=== PATIENT | female | born 1940 | race Caucasian/White ===

== ENCOUNTER 2021-07-03 11:24 | Observation (INO) ==
[2021-07-03] MEDS ORDERED: *HR* FentaNYL (PF) 100 MCG/2 ML VIAL IVP ONE ×6 (12:09→21:16)
[2021-07-03] MEDS ORDERED: Ondansetron 4 MG/2 ML VIAL IVP ONE (12:09)
[2021-07-03] MEDS ORDERED: Isovue-370 500 ML BOTTLE IVP ONE (12:10)
[2021-07-03 12:29] LABS: Basophils % 0.4 %; Eosinophils % 0.2 %; Hematocrit 43.6 % (35.3-44.9); Hemoglobin 14.7 g/dL (11.5-15.4); Immature Granulocytes % 0.4 % (0-4); Lymphocytes # 1.6 K/mcL (0.6-4.6); Mean Corpuscular HGB Conc 33.7 g/dL (31.6-35.5); Mean Corpuscular Hemoglobin 29.5 pg (28.0-33.3); Mean Corpuscular Volume 87.6 fL (83.0-100.0); Mean Platelet Volume 8.8 fL (9.4-12.4); Monocytes # 0.6 K/mcL (0.0-1.3); Monocytes % 5.6 %; Neutrophils # 7.8 K/mcL (1.6-8.9); Platelet Count 229 K/mcL (140-400); Red Blood Count 4.98 M/mcL (3.82-4.97); Red Cell Distribution Width 16.2 % (11.5-14.5); Segmented Neutrophils % 77.4 %; White Blood Count 10.1 K/mcL (4.3-11.1)
[2021-07-03 12:57] LABS: Alanine Aminotransferase 21 Units/L (7-52); Albumin 4.5 g/dL (3.5-5.7); Albumin/Globulin Ratio 1.3 (1.1-2.2); Alkaline Phosphatase 71 Units/L (34-104); Aspartate Amino Transferase 19 Units/L (13-39); BUN/Creatinine Ratio 32 (6-26); Bilirubin,Total 0.7 mg/dL (0.3-1.0); Blood Urea Nitrogen 28 mg/dL (8-23); Calcium 10.4 mg/dL (8.6-10.3); Carbon Dioxide 26 mEq/L (23-29); Chloride 100 mEq/L (98-107); Globulin 3.6 g/dL (2.4-3.5); Glucose 128 mg/dL (70-105); Lipase 15 Units/L (11-82); Osmolality,Calculated 287 (280-300); Potassium 4.1 mEq/L (3.5-5.1); Sodium 135 mEq/L (136-145); Total Protein 8.1 g/dL (6.4-8.9); eGFR For African Americans > 60 (> 60); eGFR For Non-African Americans > 60 (> 60)
[2021-07-03] MEDS ORDERED: *HR* Promethazine 25 MG/ML VIAL IM ONE ×2 (14:03→18:17)
[2021-07-03 15:13] LABS: Bilirubin,Urine Negative (Negative); Blood,Urine Negative (Negative); Clarity,Urine Clear (Clear); Color,Urine Light-Yellow (Yellow); Glucose,Urine (UA) Normal (Normal); Ketones,Urine 10 mg/dL (Negative); Leukocyte Esterase,Urine Negative (Negative); Nitrite,Urine Negative (Negative); PH,Urine 7.5 pH Units (5.0-8.0); Protein,Urine Trace mg/dL (Neg-Trace); Specific Gravity,Urine > 1.030 (1.010-1.025); Urobilinogen,Urine Normal (Normal)
[2021-07-03] MEDS ORDERED: Ondansetron 4 MG/2 ML VIAL IVP PRN (17:18)
[2021-07-04] MEDS ORDERED: Ketorolac 15 MG/ML VIAL IVP PRN (00:11)
[2021-07-04] MEDS ORDERED: Naloxone 0.4 MG/ML INJ IVP PRN (00:11)
[2021-07-04] MEDS: 0.9 % Sodium Chloride 1,000 ML IVC SCH ×3 (00:58→23:04)
[2021-07-04] MEDS ORDERED: Morphine Sulfate 2 MG/ML SYRINGE IVP PRN (01:45)
[2021-07-04] MEDS: Ondansetron 4 MG/2 ML VIAL IVP PRN (01:55)
[2021-07-04 04:21] LABS: Basophils % 0.3 %; Hematocrit 43.5 % (35.3-44.9); Hemoglobin 14.9 g/dL (11.5-15.4); Immature Granulocytes % 0.5 % (0-4); Lymphocytes % 8.9 %; Mean Corpuscular HGB Conc 34.3 g/dL (31.6-35.5); Mean Corpuscular Hemoglobin 30.2 pg (28.0-33.3); Mean Corpuscular Volume 88.2 fL (83.0-100.0); Mean Platelet Volume 9.7 fL (9.4-12.4); Monocytes # 0.4 K/mcL (0.0-1.3); Monocytes % 3.7 %; Neutrophils # 9.4 K/mcL (1.6-8.9); Platelet Count 231 K/mcL (140-400); Red Blood Count 4.93 M/mcL (3.82-4.97); Red Cell Distribution Width 16.2 % (11.5-14.5); Segmented Neutrophils % 86.6 %; White Blood Count 10.8 K/mcL (4.3-11.1)
[2021-07-04 04:26] LABS: INR 1.1; Prothrombin Time 12.6 Seconds (9.4-12.1)
[2021-07-04 04:37] LABS: BUN/Creatinine Ratio 32 (6-26); Blood Urea Nitrogen 28 mg/dL (8-23); Calcium 9.8 mg/dL (8.6-10.3); Carbon Dioxide 24 mEq/L (23-29); Chloride 103 mEq/L (98-107); Glucose 124 mg/dL (70-105); Magnesium 2.4 mg/dL (1.6-2.6); Osmolality,Calculated 287 (280-300); Potassium 4.5 mEq/L (3.5-5.1); Sodium 135 mEq/L (136-145); eGFR For African Americans > 60 (> 60); eGFR For Non-African Americans > 60 (> 60)
[2021-07-04] MEDS ORDERED: *HR* Dextrose 50 % in Water (Vial) 50 ML VIAL IVP PRN (07:59)
[2021-07-04] MEDS ORDERED: D5% in Water 1,000 ML IVC PRN (07:59)
[2021-07-04] MEDS ORDERED: Dextrose Gel 15 GM/37.5 ML TUBE PO PRN ×2 (07:59)
[2021-07-04] MEDS: Morphine Sulfate 2 MG/ML SYRINGE IVP PRN ×2 (12:04→18:08)
[2021-07-04] MEDS: Insulin LISPRO 300 UNITS/3 ML VIAL SUBQ SCH ×3 (13:13→23:55)
[2021-07-04] MEDS: *HR* Heparin 5,000 UNIT/ML VIAL SQ SCH (17:19)
[2021-07-04 20:00] VITALS: O2SAT 92
[2021-07-05] MEDS: Morphine Sulfate 2 MG/ML SYRINGE IVP PRN ×2 (00:08→09:05)
[2021-07-05] MEDS: Ondansetron 4 MG/2 ML VIAL IVP PRN (00:16)
[2021-07-05] MEDS: Insulin LISPRO 300 UNITS/3 ML VIAL SUBQ SCH (05:38)
[2021-07-05] MEDS: *HR* Heparin 5,000 UNIT/ML VIAL SQ SCH (05:39)
[2021-07-05 07:52] VITALS: BP 170/89; PULSE 94; TEMP 98.1
[2021-07-05] MEDS ORDERED: Acetaminophen IV 1,000 MG/100 ML BAG IVPB SCH (10:00)
[2021-07-05] MEDS ORDERED: Morphine PCA 30 MG/ 30 ML 30 ML PCA.VIAL IVC PRN (11:13)
[2021-07-05] MEDS ORDERED: Morphine Sulfate 2 MG/ML SYRINGE IVP ONE (11:48)
[2021-07-05] MEDS: 0.9 % Sodium Chloride 1,000 ML IVC SCH (13:44)
== END 2021-07-05 14:04 | disposition short-term general hospital (02) ==
LOC: 3ANU 11:24 → EMEROOARM 11:24 → SUATTDRO 23:38 → 3ANU 07-04 00:17
PROVIDERS: ADMIT Internal Medicine; ATTEND Internal Medicine